=== PATIENT | male | born 1990 | race Caucasian/White ===

== ENCOUNTER 2019-01-18 03:45 | Emergency (ER) | payer SELFPAY ==
[2019-01-18 04:40] LABS: ABS Lymphocytes 1.1 10^3/ul (1.0-4.8); ABS Monocytes 0.6 10^3/ul (0-0.8); ABS Neutrophils 7.1 10^3/ul (1.5-7.7); Eosinophil % 0.2 %; Hematocrit 46 % (42-52); Hemoglobin 15.7 g/dL (14.0-18.0); Lymphocyte % 12.8 %; Mean Corpuscular HGB Conc 34 g/dL (31-36); Mean Corpuscular Hemoglobin 29 pg (27-31); Mean Corpuscular Volume 86 fL (80-94); Mean Platelet Volume 9.4 fL (7.4-10.4); Nucleated Red Blood Cells % 0.1; Platelet Count 254 10^3/uL (150-450); Red Blood Count 5.34 10^6 /uL (4.18-5.48); Red Cell Distribution Width 13 % (10-15); White Blood Count 8.9 10^3/uL (3.5-10.8)
[2019-01-18 04:48] LABS: Urine Appearance Clear; Urine Bilirubin Negative (Negative); Urine Blood Negative (Negative); Urine Color Yellow; Urine Glucose Negative (Negative); Urine Ketones 1+ (Negative); Urine Nitrite Negative (Negative); Urine Protein 1+(30 mg/dL) (Negative); Urine Specific Gravity 1.018 (1.010-1.030); Urine Urobilinogen Negative (Negative)
[2019-01-18 04:49] LABS: Albumin 4.7 g/dL (3.2-5.2); Anion Gap 10 mmol/L (2-11); CO2 Carbon Dioxide 23 mmol/L (22-32); Calcium 9.5 mg/dL (8.6-10.3); Chloride 106 mmol/L (101-111); Potassium 3.9 mmol/L (3.5-5.0); Sodium 139 mmol/L (135-145)
[2019-01-18 04:49] LABS: Urine Bacteria Absent (Absent); Urine Red Blood Cell Absent (Absent); Urine White Blood Cell Trace(0-5/hpf) (Absent)
[2019-01-18 04:55] LABS: ALT 34 U/L (7-52); AST 21 U/L (13-39); Albumin/Globulin Ratio 1.9 (1-3); Alkaline Phosphatase 79 U/L (34-104); BUN/Creatinine Ratio 13.6 (8-20); Blood Urea Nitrogen 14 mg/dL (6-24); EGFR African American 103.3 (>60); EGFR Non-African American 85.4 (>60); Globulin 2.5 g/dL (2-4); Glucose 107 mg/dL (70-100); Total Protein 7.2 g/dL (6.4-8.9)
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
[2019-01-18 05:01] LABS: Alcohol 99 mg/dL (<10); Salicylate < 2.50 mg/dL (<30)
[2019-01-18 05:07] LABS: Urine Benzodiazepine Screen None Detected (None Detect); Urine Opiates Screen None Detected (None Detect)
[2019-01-18 05:11] LABS: Acetaminophen < 15 mcg/mL
[2019-01-18 05:17] LABS: TSH (Thyroid Stimulating Horm) 0.44 mcIU/mL (0.34-5.60)
--- NOTE | 2019-01-18 07:13 | ED ---
Progress - Progress Note Progress Note: Pt is a signout from Dr. Griffith at 0700 on 01/18/19 pending MHE. - Consult/PCP Time Called: 03:47 Re-Evaluation - Re-Evaluation 1st re-eval Re-Evaluation Time: 07:48 Comment: Pt will be d/c'ed with dx of substance-induced mood disorder. Course/Dx - Course Course Of Treatment: Patient was signed out to myself by Dr. Griffith pending mental health eval. Patient was evaluated by the psychiatric team and they recommended discharge home. - Diagnoses Provider Diagnoses: Substance induced mood disorder Discharge ED - Sign-Out/Discharge Documenting (check all that apply): Patient Departure, Receiving Sign-Out Receiving patient FROM: Estee Griffith - Discharge Plan Condition: Stable Disposition: HOME Patient Education Materials: Mood Disorders (ED) Referrals: No Primary Care Phys,NOPCP [Primary Care Provider] - - Billing Disposition and Condition Condition: STABLE Disposition: Home - Attestation Statements Document Initiated by Scribe: Yes Documenting Scribe: Aiyana Cummins Provider For Whom Jarede is Documenting (Include Credential): Alvaro Ellis MD. Scribe Attestation: Aiyana Skaggs, scribed for Alvaro Ellis MD. on 01/18/19 at 1736. Scribe Documentation Reviewed: Yes Provider Attestation: The documentation as recorded by the scribe, Aiyana Cummins accurately reflects the service I personally performed and the decisions made by me, Alvaro Ellis MD. Status of Scribe Document: Viewed
[2019-01-18 09:01] VITALS: BP 124/74
== END 2019-01-18 08:59 | disposition home or self-care (01) ==
LOC: ED 03:45
DX: F19.94 Other psychoactive substance use, unspecified with psychoactive substance-induced mood disorder (principal); R45.851 Suicidal ideations; Z79.899 Other long term (current) drug therapy; F17.210 Nicotine dependence, cigarettes, uncomplicated
CPT/HCPCS: 36415; 80053; 80307; 80320; 80329; 81003; 81015; 84443; 85025; 87086; 99285; G0480